=== PATIENT | female | born 1995 | race Caucasian/White ===

== ENCOUNTER 2019-03-05 16:52 | Emergency (ER) | payer OTHER ==
[2019-03-05] MEDS ORDERED: ONDANSETRON HCL INJ/PF 4 MG/2 ML SDV IV ONE (18:51)
[2019-03-05] MEDS ORDERED: ACETAMINOPHEN 325 MG TABLET PO ONE (18:55)
--- NOTE | 2019-03-05 18:59 | ER Document Report ---
ED Medical Screen (RME) - General Chief Complaint: Abdominal Pain Stated Complaint: ABDOMINAL PAIN Time Seen by Provider: 03/05/19 18:39 Notes: 23-year-old female with a history of syncopal episodes and cristel- tachydysrhythmias presents to the emergency department with chief complaint of acute right lower quadrant pain that started yesterday. Patient states that the pain is very focal. Denies fevers or chills but was seen at an urgent care prior to here and had a T-max of 101 with a normal temp here at triage, complains of nausea with no vomiting, had 2 episodes of diarrhea. Patient states that she does have a history of abdominal pain since she had a Mirena placed after child 1 year ago but this pain is unlike any thing like that. She denies any flank pain, denies any urinary symptoms, denies any abnormal vaginal discharge. She denies any abdominal surgical history. I have greeted and performed a rapid initial assessment of this patient. A comprehensive ED assessment and evaluation of the patient, analysis of test results and completion of medical decision making process will be conducted by an additional ED providers. TRAVEL OUTSIDE OF THE [place] IN LAST 30 DAYS: No - Related Data Allergies/Adverse Reactions: azithromycin [From Zithromax] Allergy (Verified 03/05/19 16:53) Past Medical History - Social History Chew tobacco use (# tins/day): No Frequency of alcohol use: Occasional Drug Abuse: None Renal/ Medical History: Reports: Hx Kidney Stones. Denies: Hx Peritoneal Dialysis Physical Exam - Vital signs Vitals: Temp Pulse Resp BP Pulse Ox 98.7 F 113 H 18 140/72 H 100 03/05/19 16:56 03/05/19 16:56 03/05/19 16:56 03/05/19 16:56 03/05/19 16:56 - Notes Notes: PHYSICAL EXAMINATION: Reviewed vital signs and charting by RN GENERAL: Alert, interacts well. No acute distress. HEAD: Normocephalic, atraumatic. EYES: Pupils equal and round. Extraocular movements intact. ENT: Oral mucosa moist, tongue midline. NECK: Full range of motion. Trachea midline. LUNGS: Clear to auscultation bilaterally, no wheezes, rales, or rhonchi. No respiratory distress. HEART: Regular rate and rhythm. No murmur ABDOMEN: Complete exam limited in triage but bowel sounds were present and she did have right lower quadrant abdominal pain on palpation EXTREMITIES: Moves all 4 extremities spontaneously. No edema, No cyanosis. PSYCH: Normal affect, normal mood. SKIN: Warm, dry, normal turgor. No rashes or lesions noted. Course - Vital Signs Vital signs: Temp Pulse Resp BP Pulse Ox 98.7 F 113 H 18 140/72 H 100 03/05/19 16:56 03/05/19 16:56 03/05/19 16:56 03/05/19 16:56 03/05/19 16:56
[2019-03-05 19:41] LABS: ABSOLUTE BASOPHILS # (AUTO) 0.1 10^3/uL (0.0-0.2); ABSOLUTE EOSINOPHILS # (AUTO) 0.1 10^3/uL (0.0-0.6); ABSOLUTE LYMPHOCYTES (AUTO) 1.5 10^3/uL (0.5-4.7); ABSOLUTE MONOCYTES (AUTO) 0.7 10^3/uL (0.1-1.4); ABSOLUTE NEUT (AUTO) 10.4 10^3/uL (1.7-8.2); BASOPHILS % (AUTO) 0.5 % (0-2); EOSINOPHILS % (AUTO) 0.5 % (0-6); HEMATOCRIT 39.5 % (36.0-47.0); HEMOGLOBIN 13.4 g/dL (12.0-15.5); LYMPHOCYTES % (AUTO) 11.8 % (13-45); MEAN CORPUSCULAR HEMOGLOBIN 29.6 pg (27.0-33.4); MEAN CORPUSCULAR VOLUME 87 fl (80-97); MONOCYTES % (AUTO) 5.4 % (3-13); PLATELET COUNT 252 10^3/uL (150-450); RED BLOOD COUNT 4.54 10^6/uL (3.72-5.28); RED CELL DISTRIBUTION WIDTH 12.7 % (11.5-14.0); SEGMENTED NEUTROPHILS % (AUTO) 81.8 % (42-78); TOTAL CELLS COUNTED % (AUTO) 100 %; WHITE BLOOD COUNT 12.7 10^3/uL (4.0-10.5)
[2019-03-05 19:50] LABS: APPEARANCE,URINE CLEAR; BILIRUBIN,URINE NEGATIVE (NEGATIVE); COLOR,URINE YELLOW; GLUCOSE, URINE NEGATIVE (NEGATIVE); KETONES,URINE NEGATIVE (NEGATIVE); LEUKOCYTE ESTERASE,URINE NEGATIVE (NEGATIVE); NITRITE,URINE NEGATIVE (NEGATIVE); PROTEIN,URINE NEGATIVE (NEGATIVE); URINE SPECIFIC GRAVITY 1.019; UROBILINOGEN,URINE NEGATIVE mg/dL (<2.0)
[2019-03-05 21:03] LABS: ALANINE AMINOTRANSFERASE 24 U/L (9-52); ALBUMIN 4.7 g/dL (3.5-5.0); ALKALINE PHOSPHATASE 77 U/L (38-126); ANION GAP 10 (5-19); ASPARTATE AMINO TRANSFERASE 23 U/L (14-36); BILIRUBIN,DIRECT 0.3 mg/dL (0.0-0.4); BILIRUBIN,TOTAL 1.1 mg/dL (0.2-1.3); BLOOD UREA NITROGEN 16 mg/dL (7-20); CALCIUM 9.6 mg/dL (8.4-10.2); CARBON DIOXIDE 23 mmol/L (22-30); CHLORIDE 107 mmol/L (98-107); GLUCOSE 91 mg/dL (75-110); POTASSIUM 4.4 mmol/L (3.6-5.0); SODIUM 139.7 mmol/L (137-145); TOTAL PROTEIN 7.9 g/dL (6.3-8.2)
--- NOTE | 2019-03-06 01:09 | RADIOLOGY REPORT (SQ) ---
EXAM DESCRIPTION: CT ABDOMEN PELVIS WITH IV CONTRAST COMPLETED DATE/TME: 03/05/2019 00:00 CLINICAL HISTORY: 23 years, Female, RLQ pain, r/o appy COMPARISON: None. TECHNIQUE: CT of the abdomen and pelvis was performed following intravenous administration of contrast. Oral contrast was administered. Multiplanar reformatted images were provided. This exam was performed according to our departmental dose optimization program which includes use of automated exposure control, adjustment of the mA and/or kV according to patient size and/or use of iterative reconstruction technique. Images stored on PACS. All CT scanners at this facility use dose modulation, iterative reconstruction, and/or weight based dosing when appropriate to reduce radiation dose to as low as reasonably achievable (ALARA). [facility]: Dose Right [facility]: CareDose [facility]: Dose Right [facility]: Teradose 4D [facility]: Socialthing LIMITATIONS: None. FINDINGS: Chest: Evaluation through the lung bases reveals no focal opacity, pleural effusion or pneumothorax. Heart size is within normal limits. No pericardial effusion. Abdomen and pelvis: The liver, gallbladder, pancreas, spleen, bilateral kidneys and bilateral adrenal glands are within normal limits. The vessels are patent and normal in caliber. No abdominopelvic lymph nodes are noted to be pathologically enlarged by CT measurement criteria. The bowel is within normal limits without abnormal bowel wall thickness or bowel dilation. Contrast opacifies the distal small bowel and proximal large bowel to the level of the hepatic flexure. Large volume of fecal content present throughout the large bowel raising the question of fecal stasis or constipation. No free air. No free abdominopelvic fluid collections. The appendix is identified situated just posteriorly to the cecum and is only partially visualized. The appendix is incompletely visualized secondary to paucity of intra-abdominal fat and multiple abutting bowel loops. The visualized portion of the appendix contains air and fecal content measuring up to 4 mm, (series 3, image 70). No discrete periappendiceal stranding is identified, however evaluation is limited by paucity of intra-abdominal fat. A faint volume of increased density and air within the proximal appendix may represent fecal content or small volume of incompletely opacified contrast. No clear CT findings noted to suggest acute appendicitis. Please correlate with patient clinical findings. Intrauterine device is situated at the level of the uterine fundus. The osseous structures are within normal limits. IMPRESSION: 1. No specific acute intra-abdominal findings are noted to suggest etiology of the patient's abdominal pain. 2. Limited visualization of the appendix secondary to paucity of intra-abdominal fat as described as above without findings to suggest acute appendicitis. 3. Uncovertebral TECHNICAL DOCUMENTATION: Quality ID # 436: Final reports with documentation of one or more dose reduction techniques (e.g., Automated exposure control, adjustment of the mA and/or kV according to patient size, use of iterative reconstruction technique) copyright 2011 [email or web address]- All Rights Reserved
[2019-03-06] MEDS ORDERED: ONDANSETRON HCL INJ/PF 4 MG/2 ML SDV IV ONE (01:16)
--- NOTE | 2019-03-06 01:54 | ER Document Report ---
ED General - General Chief Complaint: Abdominal Pain Stated Complaint: ABDOMINAL PAIN Time Seen by Provider: 03/05/19 18:39 TRAVEL OUTSIDE OF THE [place] IN LAST 30 DAYS: No - HPI Notes: This is a 23-year-old female who presents to the emergency department for evaluation of right lower quadrant pain. She states her symptoms started yesterday. It started with a dull pain, and is now sharp and stabbing. She points to her right lower quadrant. She has had nausea. She states she was seen at an urgent care and was told that her temperature was 101. No intervention was made and she is afebrile here. She is had 2 episodes of diarrhea. She denies any urinary symptoms. Mild nausea. No emesis. No v aginal discharge. She does admit that she has had vaginal bleeding daily since the insertion of her IUD. That was nearly a year ago. She has no history of STDs. - Related Data Allergies/Adverse Reactions: azithromycin [From Zithromax] Allergy (Verified 03/05/19 20:53) Past Medical History - General Information source: Patient - Social History Smoking Status: Never Smoker Chew tobacco use (# tins/day): No Frequency of alcohol use: Occasional Drug Abuse: None Patient has suicidal ideation: No Patient has homicidal ideation: No - Past Medical History Cardiac Medical History: Reports: Other - Linq monitor in place for cardiac dysrhythmia Renal/ Medical History: Reports: Hx Kidney Stones. Denies: Hx Peritoneal Dialysis Review of Systems - Review of Systems Constitutional: No symptoms reported EENT: No symptoms reported Cardiovascular: No symptoms reported Respiratory: No symptoms reported Gastrointestinal: See HPI Genitourinary: No symptoms reported Female Genitourinary: See HPI Musculoskeletal: No symptoms reported Skin: No symptoms reported Neurological/Psychological: No symptoms reported Physical Exam - Vital signs Vitals: Temp Pulse Resp BP Pulse Ox 98.7 F 113 H 18 140/72 H 100 03/05/19 16:56 03/05/19 16:56 03/05/19 16:56 03/05/19 16:56 03/05/19 16:56 - Notes Notes: Vital signs reviewed, please refer to chart. Head is normocephalic, atraumatic. Pupils equal round, reactive to light. Neck is supple without meningismus. Heart is regular rate and rhythm. Lungs are clear to auscultation bilaterally. Abdomen is soft, moderate right lower quadrant tenderness without rebound or guarding, normoactive bowel sounds throughout. Extremities without cyanosis, clubbing. Posterior calves are nontender. Peripheral pulses are equal. Skin is warm and dry. Patient is awake, alert, neurological exam is nonfocal. Course - Re-evaluation Re-evalutation: 03/06/19 01:52 Patient presents to the emergency department for evaluation of right lower quadrant abdominal pain. Initial laboratory investigation and imaging were ordered through triage. Because of this patient's paucity of intra-abdominal fat, decision was made to proceed with an oral and IV contrasted CT scan. She is kept n.p.o. Laboratory investigations revealed leukocytosis. Urine was largely unremarkable. CT scan was equivocal. Only part of the appendix was visualized, but was seen did appear normal. I did go back and reexamined the patient. She actually seems more tender at this point, with some voluntary guarding. Given these findings, I did elect to consult Dr. Madsen. Dr. Madsen came down to the department to evaluate the patient. He asked that a transvaginal ultrasound be performed. He also states he would also consult OB. Patient continuing to complain of nausea and pain. She was offered stronger pain medication, but declines that at this time. She was treated with Zofran. We will continue to monitor. 03/06/19 03:07 Patient currently in ultrasound. I spoke with Dr. Griggs, on-call [facility]. We discussed this case. He does recommend collecting a dirty urine for evaluation of gonorrhea and chlamydia. He asked that he be called if any abnormalities are noted on the transvaginal ultrasound. Otherwise, he states he believes that would be sufficient for a gynecological evaluation at this time. Awaiting ultrasound results. 03/06/19 03:44 I personally reviewed the ultrasound, did not see signs concerning for torsion or significant cyst. I do not believe that she has a gynecological cause for her pain. Urine for gonorrhea and chlamydia is sent, is pending at this time. Again this is a young woman who is in a monogamous relationship, has no STD history, no discharge. This is not high on my differential either. I went and reexamined the patient. She remains tender, but now she has more tenderness in the right mid and upper quadrants as well. I did go back and reviewed the scan. She does have a significant right-sided stool burden. She did have watery diarrhea today, but it is certainly possible that this was just due to decreased transit time and possible viral illness. It is possible at this point that the stool burden is the cause of her pain. I discussed this with the patient. Surgery saw her and did not have a high suspicion for appendicitis. The patient actually needs to go to [facility] today for her son. She feels comfortable with the idea of discharge. I explained to her that, although I found it unlikely, I could not totally rule out appendicitis based on her information here today. She understands this. She is told she needs to be seen again of her pains worsen or if she develops any new or concerning symptoms. She voiced understanding to this. Awaiting official radiology read on ultrasound. Pending normal ultrasound result, patient will be sent home with Zofran and close follow-up. She is amenable to this plan. - Vital Signs Vital signs: Temp Pulse Resp BP Pulse Ox 98.1 F 72 18 128/76 H 100 03/05/19 22:14 03/05/19 22:14 03/05/19 22:14 03/05/19 22:14 03/05/19 22:14 - Laboratory Result Diagrams: 03/05/19 19:23 03/05/19 20:24 Laboratory results interpreted by me: 03/05/19 19:23 WBC 12.7 H Seg Neutrophils % 81.8 H Lymphocytes % 11.8 L Absolute Neutrophils 10.4 H - Diagnostic Test Radiology reviewed: Reports reviewed Radiology results interpreted by me: 03/06/19 03:08 Abdomen/Pelvis CT 03/05/19 00:00 IMPRESSION: 1. No specific acute intra-abdominal findings are noted to suggest etiology of the patient's abdominal pain. 2. Limited visualization of the appendix secondary to paucity of intra-abdominal fat as described as above without findings to suggest acute appendicitis. 3. Uncovertebral TECHNICAL DOCUMENTATION: Quality ID # 436: Final reports with documentation of one or more dose reduction techniques (e.g., Automated exposure control, adjustment of the mA and/or kV according to patient size, use of iterative reconstruction technique) copyright 2011 [employer]- All Rights Reserved Discharge - Discharge Clinical Impression: Right sided abdominal pain, Nausea Diarrhea Qualifiers: Diarrhea type: unspecified type Qualified Code(s): R19.7 - Diarrhea, unspecified Condition: Stable Disposition: HOME, SELF-CARE Instructions: Abdominal Pain ([facility]), Antinausea Medication ([facility]) Additional Instructions: No clear cause was found for your abdominal pain today. I am unable to fully rule out appendicitis as a cause of your pain, although it is unlikely at this point. Clear liquids only. Zofran as needed for nausea. Advance diet slowly as tolerated over the next 24 hours. Follow-up with primary care in the next 48 hours. If your pain worsens, or you develop new or concerning symptoms of any sort, please return immediately to the emergency department for reevaluation.
--- NOTE | 2019-03-06 02:03 | PDOC CONSULTATION ---
Consultation Consult Date: 03/06/19 Provider Consulted: ANT CALIX Consult reason:: RLQ pains History of Present Illness History of Present Illness: JOSIE DHALIWAL is a 23 year old female who woke up yesterday morning with RLQ pains. Pains initially intermittent and went to an Urgent care today where she was noted to have a fever of 101. Able to eat regular food for lunch today. Pains were more steady tonight with diarrhea, nausea and vomiting. Hx of Kidney stones a year ago which she spontaneously passed. Has an IUD placed after her 3rd about a year ago and since placement has been having almost daily small amount of vaginal bleeding occasionally associated with mild discomfort. Had a CT scan of abdomen/pelvis which visualized the appendix with partial opacification and without surrounding inflammation. Social History Smoking Status: Never Smoker Family History Parental Family History Reviewed: Yes - father with renal failure Children Family History Reviewed: No Sibling(s) Family History Reviewed.: No Medication/Allergy Home Medications: Ondansetron [Zofran Odt 4 mg Tablet] 1 tab PO Q4H PRN #15 tab.rapdis 03/06/19 Allergies/Adverse Reactions: azithromycin [From Zithromax] Allergy (Verified 03/05/19 20:53) Review of Systems Constitutional: PRESENT: as per HPI Physical Exam Vital Signs: Temp Pulse Resp BP Pulse Ox 98.1 F 72 18 128/76 H 100 03/05/19 22:14 03/05/19 22:14 03/05/19 22:14 03/05/19 22:14 03/05/19 22:14 Intake & Output 03/04/19 03/05/19 03/06/19 06:59 06:59 06:59 Weight 71 kg General appearance: PRESENT: mild distress Head exam: PRESENT: atraumatic Eye exam: PRESENT: conjunctiva pink Mouth exam: PRESENT: moist Neck exam: PRESENT: full ROM Respiratory exam: PRESENT: clear to auscultation gui Cardiovascular exam: PRESENT: RRR Pulses: PRESENT: normal radial pulses Vascular exam: PRESENT: normal capillary refill GI/Abdominal exam: PRESENT: soft, tenderness - RLQ and suprapubic Rectal exam: PRESENT: deferred Skin exam: PRESENT: normal color, warm Results Laboratory Results: 03/05/19 19:23 03/05/19 20:24 07/03/05/19 03/05/19 19:23 19:23 19:23 WBC 12.7 H RBC 4.54 Hgb 13.4 Hct 39.5 MCV 87 MCH 29.6 MCHC 34.0 RDW 12.7 Plt Count 252 Seg Neutrophils % 81.8 H Lymphocytes % 11.8 L Monocytes % 5.4 Eosinophils % 0.5 Basophils % 0.5 Absolute Neutrophils 10.4 H Absolute Lymphocytes 1.5 Absolute Monocytes 0.7 Absolute Eosinophils 0.1 Absolute Basophils 0.1 Sodium Cancelled Potassium Cancelled Chloride Cancelled Carbon Dioxide Cancelled Anion Gap Cancelled BUN Cancelled Creatinine Cancelled Est GFR ( Amer) Cancelled Est GFR (Non-Af Amer) Cancelled Glucose Cancelled Calcium Cancelled Total Bilirubin Cancelled AST Cancelled ALT Cancelled Alkaline Phosphatase Cancelled Total Protein Cancelled Albumin Cancelled Lipase Cancelled Urine Color YELLOW Urine Appearance CLEAR Urine pH 5.0 Ur Specific [place] 1.019 Urine Protein NEGATIVE Urine Glucose (UA) NEGATIVE Urine Ketones NEGATIVE Urine Blood NEGATIVE Urine Nitrite NEGATIVE Ur Leukocyte Esterase NEGATIVE Urine WBC (Auto) 1 Urine RBC (Auto) 2 03/05/19 20:24 WBC RBC Hgb Hct MCV MCH MCHC RDW Plt Count Seg Neutrophils % Lymphocytes % Monocytes % Eosinophils % Basophils % Absolute Neutrophils Absolute Lymphocytes Absolute Monocytes Absolute Eosinophils Absolute Basophils Sodium 139.7 Potassium 4.4 Chloride 107 Carbon Dioxide 23 Anion Gap 10 BUN 16 Creatinine 0.82 Est GFR ( Amer) > 60 Est GFR (Non-Af Amer) > 60 Glucose 91 Calcium 9.6 Total Bilirubin 1.1 AST 23 ALT 24 Alkaline Phosphatase 77 Total Protein 7.9 Albumin 4.7 Lipase 58.0 Urine Color Urine Appearance Urine pH Ur Specific [place] Urine Protein Urine Glucose (UA) Urine Ketones Urine Blood Urine Nitrite Ur Leukocyte Esterase Urine WBC (Auto) Urine RBC (Auto) Impressions: Abdomen/Pelvis CT 03/05/19 00:00 IMPRESSION: 1. No specific acute intra-abdominal findings are noted to suggest etiology of the patient's abdominal pain. 2. Limited visualization of the appendix secondary to paucity of intra-abdominal fat as described as above without findings to suggest acute appendicitis. 3. Uncovertebral TECHNICAL DOCUMENTATION: Quality ID # 436: Final reports with documentation of one or more dose reduction techniques (e.g., Automated exposure control, adjustment of the mA and/or kV according to patient size, use of iterative reconstruction technique) copyright 2011 [employer]- All Rights Reserved Assessment & Plan - Diagnosis (1) Abdominal pain Is this a current diagnosis for this admission?: Yes (2) IUD contraception Is this a current diagnosis for this admission?: Yes - Time Time Spent: 30 to 50 Minutes - Plan Summary Plan Summary: Doubt Acute Appendicitis Would obtain pelvic ultrasound Pelvic ultrasound is normal. Pains apparently shifted to upper abdomen OK to discharge and agree with instructions of coming back if pains worsen or with persistent fever and with nausea/vomiting
[2019-03-06] MEDS ORDERED: KETOROLAC TROMETHAMINE INJ/PF 30 MG/1 ML SDV IV ONE (03:43)
[2019-03-06] MEDS ORDERED: ONDANSETRON ODT 4 MG TAB (6 TAB/ER DISP) PO PRN (03:44)
--- NOTE | 2019-03-06 04:17 | RADIOLOGY REPORT (SQ) ---
Ultrasound pelvis transvaginal on 03/06/2019 at 2:40 AM CLINICAL INDICATION: Right lower quadrant pain COMPARISON: CT from 03/05/2019 FINDINGS: Multiple sonographic images are obtained throughout the pelvis by transabdominal and transvaginal approach, both transverse and sagittal images are obtained. Intrauterine device appears in good position in the uterus. Uterus measures approximately 6.2 x 3.0 x 5.0 cm. Endometrial stripe measures 3 mm which is within normal limits. Uterine myometrium appears homogeneous. Right ovary measures approximately 3.2 x 2.1 x 2.5 cm. Flow is demonstrated in the right ovary. Left ovary measures approximately 3.3 x 2.4 x 1.9 cm. Flow is demonstrated in the left ovary. No adnexal mass or fluid collection is noted. No free fluid is noted. IMPRESSION: Unremarkable exam.
[2019-03-06 04:21] VITALS: BP 111/68
[2019-03-06 04:51] LABS: CHLAM PCR NOT DETECTED (NOT DETECT)
== END 2019-03-06 04:32 | disposition home or self-care (01) ==
LOC: ER 16:52
DX: R10.31 Right lower quadrant pain (principal); R11.0 Nausea; R19.7 Diarrhea, unspecified; R10.9 Unspecified abdominal pain; R50.9 Fever, unspecified
CPT/HCPCS: 99284; 96374; 96375; 36415; 83690; 85025; 81025; 80053; 81001; 87491; 87591; 76830; 93976; 74177; J1885; J2405 ×2